=== PATIENT | male | born 1975 | race Caucasian/White ===

== ENCOUNTER 2016-11-21 14:12 | Emergency (ER) | payer MEDICAID ==
[~2016-11-21] VITALS: Ht 180.3 cm; Wt 88.6 kg
[2016-11-21 14:16] VITALS: BP 122/89
[2016-11-21] MEDS ORDERED: PERTUSS(ACELL),DIPH,TET VAC/PF 0.5 ML VIAL IM ONE (15:45)
[2016-11-21] MEDS ORDERED: ACETAMINOPHEN 325 MG TABLET PO ONE (15:45)
[2016-11-21] MEDS ORDERED: POVIDONE-IODINE 10% 15 ML SOLUTION UD TP ONE (15:45)
[2016-11-21] MEDS ORDERED: LIDOCAINE HCL 1% 10 ML VIAL INJ ONE (15:45)
== END 2016-11-21 16:48 | disposition home or self-care (01) ==
LOC: EMS 14:16
DX: S81.812A Laceration without foreign body, left lower leg, initial encounter (principal); W26.8XXA Contact with other sharp object(s), not elsewhere classified, initial encounter; Y93.89 Activity, other specified; Y92.89 Other specified places as the place of occurrence of the external cause; Y99.0 Civilian activity done for income or pay
CPT/HCPCS: 12002; 90471; 90715; 99283; J3490